=== PATIENT | female | born 1940 | race Caucasian/White ===

== ENCOUNTER 2016-12-19 11:42 | Observation (INO) | payer OTHER, BC ==
[~2016-12-19] VITALS: Ht 165.1 cm; Wt 89.5 kg
[~2016-12-19 11:42] MED LIST: ALPRAZOLAM0.5 MG PO; AMBIEN10 MG PO; ANTIVERT25 MG PO; BENICAR HCT 401 EAC1 PO; CIPRO500 MG PO; CO Q-1030 MG PO; FARXIGA10 MG PO; FIORICET,ESG1 TABLET PO; FISH OIL 1,0001 EAC7 PO; FLECTOR 1.3%1 PATC1 TD; LISINOPRIL20 MG PO; LOVENOX120 MG/0.8 SC; NEXIUM40 MG PO; OXYCODONE HCL5 MG PO; PRADAXA150 MG PO; PROAIR HFA8.5 GM IH; ROSUVASTATIN CA20 MG PO; TYLENOL PM1 CAPLET PO; VALIUM5 MG PO; VITAMIN D-32000 UNI2 PO
[2016-12-19 12:34] LABS: HEMATOCRIT 36.9 % (36.0-46.0); MCH 28.1 PG (29.0-34.0); MCHC 32.5 G/DL (30.0-36.0); MCV 86.4 FL (83-99); MEAN PLAT.VOLUME 10.4 uM^3 (9.5-12.4); PLATELET COUNT 311 K/uL (156-360); RBC DIS.WIDTH-CV 13.3 % (11.8-14.6); RBC DIS.WIDTH-SD 41.5 % (39-53); RED BLOOD COUNT 4.27 M/uL (3.80-5.20); WHITE BLOOD COUNT 7.4 K/uL (4.1-10.2)
[2016-12-19 12:56] LABS: TROP-I INTERPRETATION NEGATIVE; TROPONIN-I 0.01 ng/mL (0.0-0.30)
[2016-12-19 13:40] LABS: D-DIMER ELISA 0.41 mg/L FEU (< 0.57); INTER. NORMALIZED RATIO 1.1; PROTHROMBIN TIME 11.1 (9.2-11.2)
[2016-12-19] MEDS ORDERED: MOVANTIK25 MG PO (14:37)
[2016-12-19] MEDS ORDERED: LEVO-T100 MCG PO (14:44)
[2016-12-19] MEDS ORDERED: VITAMIN B CO1 TABLET PO (14:46)
[2016-12-19 15:52] LABS: CHLORIDE 109 mEq/L (99-109); POTASSIUM 4.4 mEq/L (3.7-5.4); SODIUM 142 mEq/L (136-147)
[2016-12-19 15:53] LABS: GLUCOSE 134 mg/dL (70-99)
[2016-12-19 15:55] LABS: ANION GAP 10 MEQ/L (2-14)
[2016-12-19 15:57] LABS: GFR ESTIMATE (CALCULATED) > 59 mL/min/
[2016-12-19 15:58] LABS: UREA NITROGEN (BUN) 17 mg/dL (9-23)
[2016-12-19 16:15] VITALS: BP 159/76
[2016-12-19 16:33] LABS: SAMPLE HEMOLYSIS CHECK 0; SAMPLE ICTERIC CHECK 0; SAMPLE LIPEMIA CHECK 0
[2016-12-19 16:36] VITALS: BP 155/68
[2016-12-19 16:38] LABS: HDL CHOLESTEROL 38 MG/DL (Desirable>=50); LDL CHOLESTEROL 98 mg/dL (Desirable<100); NON-HDL CHOLESTEROL 145 mg/dL (Desirable<160); TOTAL CHOLESTEROL 183 mg/dL (Desirable<200); TRIGLYCERIDES 237 MG/DL (Normal: <150)
[2016-12-19 19:40] LABS: TROP-I INTERPRETATION NEGATIVE; TROPONIN-I 0.02 ng/mL (0.0-0.30)
[2016-12-19 19:45] VITALS: BP 128/79
[2016-12-20 00:26] VITALS: BP 151/64
[2016-12-20 01:06] LABS: TROP-I INTERPRETATION NEGATIVE; TROPONIN-I < 0.01 ng/mL (0.0-0.30)
[2016-12-20 04:00] VITALS: BP 123/61
[2016-12-20 07:50] VITALS: BP 127/73
== END 2016-12-20 13:05 | disposition home or self-care (01) ==
LOC: EME 11:42 → EDOF 14:00 → 5WEST 14:00 → EDOF 14:00 → 5WEST 16:02
PROVIDERS: Emergency Medicine; Internal Medicine
DX: R07.9 Chest pain, unspecified (principal); M79.602 Pain in left arm; R06.02 Shortness of breath; I10 Essential (primary) hypertension; Z86.718 Personal history of other venous thrombosis and embolism; F41.9 Anxiety disorder, unspecified; G89.29 Other chronic pain; M54.9 Dorsalgia, unspecified; M48.00 Spinal stenosis, site unspecified; Z86.711 Personal history of pulmonary embolism; Z95.828 Presence of other vascular implants and grafts; Z79.01 Long term (current) use of anticoagulants; R73.03 Prediabetes; E78.5 Hyperlipidemia, unspecified; E03.9 Hypothyroidism, unspecified; K59.00 Constipation, unspecified; I25.10 Atherosclerotic heart disease of native coronary artery without angina pectoris; Z98.1 Arthrodesis status; Z88.5 Allergy status to narcotic agent; Z88.8 Allergy status to other drugs, medicaments and biological substances; Z82.49 Family history of ischemic heart disease and other diseases of the circulatory system; Z83.3 Family history of diabetes mellitus; Z80.42 Family history of malignant neoplasm of prostate; Z82.5 Family history of asthma and other chronic lower respiratory diseases; Z80.3 Family history of malignant neoplasm of breast; Z80.0 Family history of malignant neoplasm of digestive organs
CPT/HCPCS: 71020; 71250; 80048; 80061; 83880; 84484; 85027; 85379; 85610; 85730; 93005; 93306; 99281; 99285; G0378